=== PATIENT | female | born 2000 | race Caucasian/White ===

== ENCOUNTER 2021-02-08 20:52 | Emergency (ER) | payer OTHER, MEDICAID ==
[2021-02-08 22:05] LABS: #Monocytes 0.6 10x3/uL (0.0-1.1); #Neutrophils 6.8 10x3/uL (1.5-8.4); %Basophils 0.4 % (0.0-2.0); %Eosinophils 0.3 % (0.0-6.0); %Lymphocytes 22.7 % (18.0-47.0); %Monocytes 6.3 % (0.0-10.0); %Neutrophils 69.8 % (40.0-75.0); Hemoglobin 14.3 g/dL (12.0-15.5); Mean Corpuscular Hemoglobin 29.7 pg (27.0-33.0); Mean Corpuscular Volume 89.8 fl (81.6-98.3); Mean Platelet Volume 9.2 fl (7.4-10.4); Platelet Count 373 10x3/uL (150-450); Red Blood Cell (RBC) Count 4.82 10x6/uL (3.90-5.03); White Blood Cell (WBC) Count 9.8 10x3/uL (3.5-10.5)
[2021-02-08 22:31] LABS: Bilirubin Neg (Negative); Blood, Urine 10 (Negative); Clarity Clear (Clear); Glucose, Urine (Dipstick) Normal (Negative); Ketone, Urine Negative (Negative); Leukocyte Negative (Negative); Nitrite Positive (Negative); Protein, Urine (Dipstick) Negative (Neg-Trace); Urobilinogen Normal mg/dL (Less than 2)
[2021-02-08 22:41] LABS: Bacteria/HPF 2+ HPF (None Seen); RBC/HPF 0-3 HPF (0-3); Squamous Epithelial 0-3 HPF (0-3); WBC/HPF 0-3 HPF (0-3)
[2021-02-12 20:36] LABS: Chlamydia by PCR Not Detected (NotDetected); GC by PCR Not Detected (NotDetected)
== END 2021-02-08 23:26 | disposition home or self-care (01) ==
LOC: CSHERS 20:52
DX: O20.9 Hemorrhage in early pregnancy, unspecified (principal); O99.891 Other specified diseases and conditions complicating pregnancy; R10.9 Unspecified abdominal pain; Z3A.01 Less than 8 weeks gestation of pregnancy
CPT/HCPCS: 36415; 81003; 81015; 84702; 85025; 86900; 86901; 87480; 87491; 87510; 87591; 87660

== ENCOUNTER 2021-09-13 10:41 | Outpatient (CLI) | payer OTHER ==
[2021-09-13 21:11] LABS: SARS-CoV-2 PCR by NAA Not Detected (NotDetected)
== END 2021-09-13 10:42 | disposition home or self-care (01) ==
LOC: CSHLAB 10:41
PROVIDERS: ATTEND Advanced Practice Midwife
DX: Z01.812 Encounter for preprocedural laboratory examination (principal); Z20.822 Contact with and (suspected) exposure to COVID-19
CPT/HCPCS: U0003; U0005

== ENCOUNTER 2021-09-17 18:30 | Inpatient (IN) | payer OTHER ==
[2021-09-17] MEDS ORDERED: Lidocaine 1% (PF) 30 ML VIAL SC PRN (23:59)
[2021-09-17] MEDS ORDERED: Methylergonovine 0.2 MG/ML VIAL IM PRN (23:59)
[2021-09-17] MEDS ORDERED: hydrALAZINE 20 MG/ML VIAL SLOW IVP PRN (23:59)
[2021-09-17] MEDS ORDERED: Ondansetron PF 4 MG/2 ML Vial IVP PRN (23:59)
[2021-09-17] MEDS ORDERED: Zolpidem Tartrate 5 MG TAB PO PRN (23:59)
[2021-09-17] MEDS ORDERED: Ibuprofen 800 MG TAB PO PRN (23:59)
[2021-09-17] MEDS ORDERED: Acetaminophen 500 MG TAB PO PRN (23:59)
[2021-09-17] MEDS ORDERED: Butorphanol Tartrate 1 MG/ML VIAL SLOW IVP PRN (23:59)
[2021-09-17] MEDS ORDERED: HYDROcodone/Acetaminophen 5/325 mg Tablet PO PRN (23:59)
[2021-09-17] MEDS ORDERED: NS w/ Oxytocin 30 units 500 ML IV SCH ×2 (23:59)
[2021-09-17] MEDS ORDERED: Misoprostol 200 MCG TAB PR PRN (23:59)
[2021-09-17] MEDS ORDERED: Promethazine HCl 25 MG/ML VIAL IM PRN (23:59)
[2021-09-18 04:33] LABS: Hemoglobin 12.6 g/dL (12.0-15.5); Mean Corpuscular HGB CONC 34.5 g/dL (32.0-36.0); Mean Corpuscular Hemoglobin 31.3 pg (27.0-33.0); Mean Corpuscular Volume 90.6 fl (81.6-98.3); Platelet Count 314 10x3/uL (150-450); RBC Distribution Width 12.9 % (11.5-14.5); Red Blood Cell (RBC) Count 4.03 10x6/uL (3.90-5.03); White Blood Cell (WBC) Count 11.6 10x3/uL (3.5-10.5)
[2021-09-18 04:34] LABS: Hep B Surf Ag Non-Reactive S/CO (NonReactive); Syphilis Antibody Nonreactive (Nonreactive); Syphilis Antibody Index 0.05 S/CO (<1.00 Non-Reactive)
[2021-09-18 04:50] LABS: HBSAg Index 0.19 S/CO (0-0.99)
[2021-09-18 04:58] VITALS: BMI 44.2
[2021-09-18 09:09] LABS: Glucose 162 mg/dL (70-105)
[2021-09-18] MEDS: Lactated Ringer's 1,000 ML IV SCH ×2 (10:26→18:09)
[2021-09-18] MEDS: Fentanyl 2 mcg/Bup 0.1% Cadd 100 ML ONE ×2 (10:27→15:51)
[2021-09-18] MEDS ORDERED: Fentanyl 100 MCG/2 ML VIAL ONE ×2 (11:39→12:40)
[2021-09-18] MEDS ORDERED: Fentanyl 100 MCG/2 ML VIAL EPIDURAL PRN (13:59)
[2021-09-18] MEDS ORDERED: Lactated Ringer's 500 ML IV PRN (13:59)
[2021-09-18] MEDS ORDERED: Acetaminophen 325 MG TAB PO PRN (13:59)
[2021-09-18] MEDS ORDERED: ePHEDrine Sulfate 50 MG/10 ML VIAL SLOW IVP PRN (13:59)
[2021-09-18] MEDS ORDERED: Hydrocerin (Eucerin) Cream 120 gm Jar TOP PRN (13:59)
[2021-09-18] MEDS ORDERED: Naloxone HCl 0.4 mg/ml Vial IVP PRN ×2 (13:59)
[2021-09-18] MEDS ORDERED: Promethazine HCl 25 MG/ML VIAL IM PRN (13:59)
[2021-09-18] MEDS ORDERED: diphenhydrAMINE 50 MG/ML VIAL IVP PRN (13:59)
[2021-09-18] MEDS ORDERED: Ondansetron PF 4 MG/2 ML Vial IVP PRN (13:59)
[2021-09-18] MEDS ORDERED: Communication Order-Pharmacy FS SCH (14:00)
[2021-09-18] MEDS ORDERED: Fentanyl 2 mcg/Bupivacaine 0.1% Cassette 100 ML EPIDURAL SCH (14:00)
[2021-09-18] MEDS: Vancomycin HCl 1 GM in Sodium Chloride 0.9% 250 ML 250 ML IVPB SCH (14:19)
[2021-09-18] MEDS ORDERED: Calcium Carbonate 500 MG ChewTAB PO PRN (18:25)
[2021-09-19] MEDS ORDERED: Ondansetron PF 4 MG/2 ML Vial ONE (00:12)
[2021-09-19] MEDS ORDERED: Misoprostol 200 MCG TAB VAG PRN (04:57)
[2021-09-19] MEDS ORDERED: hydrALAZINE 20 MG/ML VIAL SLOW IVP PRN (04:57)
[2021-09-19] MEDS ORDERED: Ondansetron PF 4 MG/2 ML Vial IVP PRN (04:57)
[2021-09-19] MEDS ORDERED: Boostrix 0.5 ML (Tdap) VIAL IM ONE (04:57)
[2021-09-19] MEDS ORDERED: HYDROcodone/Acetaminophen 5/325 mg Tablet PO PRN (04:57)
[2021-09-19] MEDS ORDERED: Milk Of Magnesia 30 ML UDCUP PO PRN (04:57)
[2021-09-19] MEDS ORDERED: Methylergonovine 0.2 MG/ML VIAL IM PRN (04:57)
[2021-09-19] MEDS ORDERED: Benzocaine-Menthol 82.5 ML CAN TOP PRN (04:57)
[2021-09-19] MEDS ORDERED: Bisacodyl 10 MG SUPP PR PRN (04:57)
[2021-09-19] MEDS ORDERED: NS w/ Oxytocin 30 units 500 ML IV SCH (05:00)
[2021-09-19] MEDS: Vancomycin HCl 1 GM in Sodium Chloride 0.9% 250 ML 250 ML IVPB SCH (07:46)
[2021-09-19] MEDS: Misoprostol 100 MCG TAB VAG SCH ×2 (07:46→07:47)
[2021-09-19] MEDS: Lactated Ringer's 1,000 ML IV SCH ×2 (07:46→07:47)
[2021-09-19] MEDS: Ferrous Sulfate 325 MG TAB PO SCH ×2 (08:06→16:25)
[2021-09-19] MEDS: Docusate Calcium (SURFAK) 240 MG CAP PO SCH ×2 (08:22→21:10)
[2021-09-19] MEDS: Prenatal Vitamin 1 TAB PO SCH (08:22)
[2021-09-19] MEDS ORDERED: Ibuprofen 800 MG TAB PO SCH (10:00)
[2021-09-19] MEDS: Ibuprofen 800 MG TAB PO SCH (21:10)
[2021-09-20] MEDS: Ibuprofen 800 MG TAB PO SCH ×3 (05:33→21:48)
[2021-09-20] MEDS: Ferrous Sulfate 325 MG TAB PO SCH ×2 (08:14→18:45)
[2021-09-20] MEDS: Prenatal Vitamin 1 TAB PO SCH (08:16)
[2021-09-20] MEDS: Docusate Calcium (SURFAK) 240 MG CAP PO SCH ×2 (08:16→21:49)
[2021-09-21] MEDS: Ibuprofen 800 MG TAB PO SCH (05:24)
[2021-09-21] MEDS: Ferrous Sulfate 325 MG TAB PO SCH (07:07)
[2021-09-21 07:53] VITALS: BP 128/69; TEMP 97.8
[2021-09-21] MEDS: Docusate Calcium (SURFAK) 240 MG CAP PO SCH (08:06)
[2021-09-21] MEDS: Prenatal Vitamin 1 TAB PO SCH (08:06)
== END 2021-09-21 13:47 | disposition home or self-care (01) | DRG 807 ==
LOC: CSHLD 22:35 → CSHPP 09-19 04:24
PROVIDERS: ADMIT Obstetrics & Gynecology; ATTEND Obstetrics & Gynecology
PROC: 3E0P7VZ Introduction of Hormone into Female Reproductive, Via Natural or Artificial Opening (ICD-10-PCS; 2021-09-17)
PROC: 10907ZC Drainage of Amniotic Fluid, Therapeutic from Products of Conception, Via Natural or Artificial Opening (ICD-10-PCS; 2021-09-18)
PROC: 10H07YZ Insertion of Other Device into Products of Conception, Via Natural or Artificial Opening (ICD-10-PCS; 2021-09-18)
PROC: 4A1HXCZ Monitoring of Products of Conception, Cardiac Rate, External Approach (ICD-10-PCS; 2021-09-18)
PROC: 4A1HXFZ Monitoring of Products of Conception, Cardiac Rhythm, External Approach (ICD-10-PCS; 2021-09-18)
PROC: 10E0XZZ Delivery of Products of Conception, External Approach (ICD-10-PCS; principal; 2021-09-19)
PROC: 0UQMXZZ Repair Vulva, External Approach (ICD-10-PCS; 2021-09-19)
DX: O24.425 Gestational diabetes mellitus in childbirth, controlled by oral hypoglycemic drugs (principal); Z37.0 Single live birth; Z3A.38 38 weeks gestation of pregnancy; O99.824 Streptococcus B carrier state complicating childbirth; O99.344 Other mental disorders complicating childbirth; F32.A Depression, unspecified; F43.10 Post-traumatic stress disorder, unspecified; O71.82 Other specified trauma to perineum and vulva; Z79.899 Other long term (current) drug therapy; Z91.410 Personal history of adult physical and sexual abuse; Z88.6 Allergy status to analgesic agent; Z88.0 Allergy status to penicillin; Z91.018 Allergy to other foods
CPT/HCPCS: 36415; 51702; 82947; 85027; 86780; 86850; 86900; 86901; 87340; J0360; J2405; J2590; J3370; J7050; J7120

== ENCOUNTER 2025-09-15 18:48 | Day surgery (SDC) | payer MEDICAID ==
[2025-09-15 18:52] VITALS: BMI 39.5
[2025-09-15 19:24] LABS: Glucose, Urine (Dipstick) Normal (Negative); Leukocyte 100 (Negative); Protein, Urine (Dipstick) 100 mg/dl (Neg-Trace); Specific Gravity, Urine 1.025 (1.005-1.030)
[2025-09-15 19:33] LABS: CAUTI Indications for Culture Pregnancy
[2025-09-15 19:34] LABS: Bacteria/HPF 3+ HPF (None Seen); Mucous/LPF 4+ LPF (<2+)
[2025-09-15 19:42] LABS: Urine Culture Reflex Yes Yes
== END 2025-09-15 22:15 | disposition home or self-care (01) ==
LOC: CSHLD/OP 18:48
PROVIDERS: ATTEND Obstetrics & Gynecology
DX: O23.43 Unspecified infection of urinary tract in pregnancy, third trimester (principal); O23.593 Infection of other part of genital tract in pregnancy, third trimester; Z3A.31 31 weeks gestation of pregnancy; Z91.018 Allergy to other foods; Z88.0 Allergy status to penicillin; Z88.5 Allergy status to narcotic agent; Z87.891 Personal history of nicotine dependence
CPT/HCPCS: 76815; 81001; 87086; 87480; 87510; 87660; 99285